=== PATIENT | male | born 2000 | race Caucasian/White ===

== ENCOUNTER 2025-06-10 13:03 | Emergency (ER) | payer BC ==
[2025-06-10 14:31] VITALS: TEMP 98.3
--- NOTE | 2025-06-10 14:49 | ERPHSYRPT ---
- History of Present Illness Time Seen by Provider: 06/10/25 14:30 Historian: patient, family Exam Limitations: no limitations Patient Subjective Stated Complaint: Pt. states "I have been having pain in my lower right side since night. I went to [facility] clinic yesterday and they checked my blood, and said they didn't think it was my appendix. The pain is still there but it comes and goes." Triage Nursing Assessment: Pt. ambulates without difficulty, in NAD, Skin P/W/D, Resp Even Unlabored, Abdomen soft, with + BS. No edema Physician History: This is a 25-year-old white male patient who presents to the emergency department with 2-day history of intermittent right sided abdominal pain. There is been intermittent nausea but no vomiting. He has had intermittent diarrhea as well. Patient arrives today accompanied by his mother. Patient was seen at [facility] in [facility] yesterday, 06/09/2025. I reviewed the records and laboratory data results from this outside facility. Patient does not have chest pain. Patient does not have cough. Patient has no shortness of breath. He has not had a fever. Activities at Onset: none Quality: aching Abdominal Pain Onset Location: RLQ Pain Radiation: no radiation Severity of Pain-Max: mild Severity of Pain-Current: none Associated Symptoms: diarrhea (Intermittent over the last 2 days), nausea (Intermittent over the last 2 days) Previous symptoms: same symptoms as today, recently seen Allergies/Adverse Reactions: No Known Drug Allergies Allergy (Unverified 03/17/25 17:06) Home Medications: No Reportable Medications [No Reported Medications] 06/10/25 [History] Hx Tetanus, Diphtheria Vaccination/Date Given: No Hx Influenza Vaccination/Date Given: No Hx Pneumococcal Vaccination/Date Given: No Immunizations Up to Date: No Travel Risk - International Travel Have you traveled outside of the country in past 3 weeks: No - Emerging Infectious Disease Are you exhibiting symptoms associated with any current EIDs: No - Review of Systems Constitutional: No Symptoms Eyes: No Symptoms Ears, Nose, & Throat: No Symptoms Respiratory: No Symptoms Cardiac: No Symptoms Abdominal/Gastrointestinal: Abdominal Pain (Right side intermittently), Nausea (Intermittently. None now), Diarrhea (Intermittently. None now), No Vomiting Genitourinary Symptoms: No Symptoms Musculoskeletal: No Symptoms Skin: No Symptoms Neurological: No Symptoms Psychological: No Symptoms Endocrine: No Symptoms Hematologic/Lymphatic: No Symptoms Immunological/Allergic: No Symptoms All Other Systems: Reviewed and Negative - Past Medical History Pertinent Past Medical History: Yes Neurological History: No Pertinent History ENT History: No Pertinent History Cardiac History: No Pertinent History Respiratory History: No Pertinent History Endocrine Medical History: No Pertinent History Musculoskeletal History: No Pertinent History GI Medical History: No Pertinent History History: No Pertinent History Psycho-Social History: No Pertinent History Male Reproductive Disorders: No Pertinent History - Past Surgical History Past Surgical History: No Neuro Surgical History: No Pertinent History Cardiac: No Pertinent History Respiratory: No Pertinent History Gastrointestinal: No Pertinent History Genitourinary: No Pertinent History Musculoskeletal: No Pertinent History Male Surgical History: No Pertinent History - Social History Smoking Status: Never smoker Exposure to second hand smoke: No Drug Use: none - Social Determinants of Health Will the patient participate in the screening: Declined to provide - Nursing Vital Signs Nursing Vital Signs: Initial Vital Signs Temperature 98.3 F 06/10/25 13:04 Pulse Rate 104 H 06/10/25 13:04 Respiratory Rate 18 06/10/25 13:04 Blood Pressure 139/107 06/10/25 13:04 O2 Sat by Pulse Oximetry 97 06/10/25 13:04 Pain Scale Pain Intensity 0 - Physical Exam General Appearance: no apparent distress, alert, anxiety Eye Exam: PERRL/EOMI, eyes nml inspection Ears, Nose, Throat Exam: normal ENT inspection, moist mucous membranes Neck Exam: normal inspection, non-tender, supple, full range of motion Respiratory Exam: normal breath sounds, lungs clear, airway intact, No chest tenderness, No respiratory distress Cardiovascular Exam: regular rate/rhythm, normal heart sounds, normal peripheral pulses Gastrointestinal/Abdomen Exam: soft, normal bowel sounds, No tenderness, No guarding, No rebound Rectal Exam: not done Back Exam: normal inspection, normal range of motion, No CVA tenderness, No vertebral tenderness Extremity Exam: normal inspection, normal range of motion, pelvis stable Neurologic Exam: alert, oriented x 3, cooperative, circuit manager II-XII nml as tested, nml cerebellar function, nml station & gait, sensation nml Skin Exam: normal color, warm, dry Lymphatic Exam: No adenopathy SpO2 Interpretation: normal SpO2: 99 O2 Delivery: Room Air - Course Nursing assessment & vital signs reviewed: Yes Ordered Tests: Active Orders 24 hr Category Date Time Status IV Insertion STAT Care 06/10/25 14:50 Active ABDOMEN AND PELVIS W/0 CONTRAS [CT] Stat Exams 06/10/25 14:50 Completed Medication Summary Discontinued Medications Generic Name Dose Route Start Last Admin Trade Name Gerard PRN Reason Stop Dose Admin Sodium Chloride 1,000 mls @ 999 mls/hr 06/10/25 14:50 06/10/25 15:53 Sodium Chloride 0.9% 1000 Ml IV 06/10/25 15:50 Infused .Q1H1M STA Infusion Sodium Chloride Confirm 06/10/25 14:56 Sodium Chloride 0.9% 1000 Ml Administered 06/10/25 14:57 Dose 1,000 mls @ ud .ROUTE .STK-MED ONE Ondansetron HCl 4 mg 06/10/25 14:50 06/10/25 14:59 Ondansetron Hcl 4 Mg/2 Ml Vial IV 06/10/25 14:51 4 mg STAT ONE Administration Ondansetron HCl Confirm 06/10/25 14:56 Ondansetron Hcl 4 Mg/2 Ml Vial Administered 06/10/25 14:57 Dose 4 mg .ROUTE .STK-MED ONE - Progress Progress: improved, re-examined Progress Note: 06/10/25 16:32 My medical decision making and the assignment of low to moderate complexity of this patient's medical issue today is based on review of the patient's past medical history, review the patient's medication list, reviewed patient drug allergy list, history present illness and physical findings on examination. The workup in this patient includes obtaining the [facility] emergency department records and review them, place an intravenous line and provide a liter of crystalloid solution to be infused as well as 4 mg of intravenous Zofran infusion. I will order a CT scan of the abdomen pelvis without contrast. Differential diagnosis includes but is not limited to acute appendicitis, urinary tract infection, pyelonephritis, anxiety about health 06/10/25 16:[address] scan of the abdomen pelvis without contrast was interpreted by the radiologist and I reviewed the impression. The impression states no acute intra-abdominal or intrapelvic findings. Counseled pt/family regarding: lab results, diagnosis, need for follow-up, rad results Medical Desision Making - Independent Historian Additional History obtained from: Mother - Diagnostic Testing Diagnostic test were ordered, analyzed, and reviewed by me: Yes Radiological Interpretation: Reviewed by me, Teleradiologist Report - Risk of complications Low Risk: Low risk of morbidity from additional dx testing or treatment - Departure Departure Disposition: Home Clinical Impression: Right sided abdominal pain Condition: Stable Critical Care Time: No Referrals: SHANNA HAWKINS DYNA[facility] TENDER [Primary Care Provider, UNKNOWN] - Follow up/PCP as directed Additional Instructions: Drink plenty of clear liquids. Advance your diet slowly. Avoid fatty greasy spicy foods.
[2025-06-10] MEDS ORDERED: Zofran 4 MG/2 ML VIAL ONE (14:56)
[2025-06-10] MEDS: Zofran 4 MG/2 ML VIAL IV ONE (14:59)
--- NOTE | 2025-06-10 16:26 | XRAY ---
CLINICAL HISTORY: Right side abdominal pain COMPARISON: No prior studies available for comparison. TECHNIQUE: Non-contrast CT of the abdomen and pelvis was performed, with the following protocol: axial images, and reconstructed coronal and sagittal images. One of the following dose reduction techniques was utilized for this exam: Automated exposure control, adjustment of the mA and/or kV according to patient size, and use of iterative reconstruction. FINDINGS: Abdomen: Liver: Normal in size, shape, and density. No focal lesions, cysts, or masses were identified. Gallbladder and Biliary System: The gallbladder is normal in size and shape. No wall thickening, pericholecystic fluid, or gallstones were identified. Pancreas: Pancreatic head, body, and tail are visualized and appear normal in size and density. No pancreatic masses or calcifications were noted. Spleen: Normal in size, shape, and density. No splenic lesions or masses were identified. Appendix: No gross abnormality noted at its region. Kidneys and Adrenal Glands: Both kidneys are normal in size, shape, and position. Cortical thickness is within normal limits. No renal calculi or hydronephrosis. Adrenal glands are unremarkable. Abdominal Aorta and Vessels: The abdominal aorta and major branches are patent without evidence of an aneurysm or significant atherosclerosis. Pelvis: Urinary Bladder: not adequaetaly filled at time of examination. Normal in contour. No gross intraluminal lesions. Prostate: Normal in size and contour. No masses or abnormal thickening. Seminal Vesicles: Normal appearance without abnormal enlargement or mass. Peritoneal and Retroperitoneal Structures: No free fluid or abnormal fluid collections were identified within the abdomen or pelvis. Few prominent mesentric lymph nodes are noted. Bowel: No evidence of bowel obstruction. Bones and Soft Tissues: Bilateral L5 pars fracture with subsequent first degree spondylolithesis of L5 over S1. Minimal dextroscoliosis of the lumbar spine also present. Pelvic bones and soft tissues are unremarkable. No fractures or abnormal masses were identified. IMPRESSION: No acute abdominal and pelvic findings. Bilateral L5 pars defects with subsequent first degree spondylolithesis of L5 over S1. Electronically Signed by: Victor Manuel Kaye MD. (06/10/2025 16:25:29 EDT)
[2025-06-10 17:46] VITALS: BP 145/85; PULSE 80; RESP 16; O2SAT 97
== END 2025-06-10 17:52 | disposition home or self-care (01) ==
LOC: ED 13:03
DX: R10.9 Unspecified abdominal pain (principal); R11.0 Nausea; R19.7 Diarrhea, unspecified